=== PATIENT | male | born 1945 | race Two or more races ===

== ENCOUNTER 2017-09-06 11:09 | Inpatient (IN) | payer OTHER ==
[~2017-09-06] VITALS: Ht 162.6 cm; Wt 79.4 kg
[~2017-09-06 11:09] MED LIST: ASPIR 8181 MG PO; BENADRYL25 MG PO; CARVEDILOL25 MG; CEFUROXIME250 MG PO; CLONAZEPAM0.5 MG PO; COZAAR100 MG; DICLOFENAC SODI50 MG PO; ISORDIL10 MG PO; LANOXIN125 MCG; LASIX20 MG; LEVAQUIN500 MG PO; LEVSIN/SL0.125 MG SL; MEDROL4 MG PO; NABUMETONE500 MG PO; ORPH100T PO; SINGULAIR 10MG10 MG; TUSSIONEX PENNKI5 ML PO; [UNRECOGNIZED DRUG - OTHER]
[2017-09-06] MEDS ORDERED: HYDRALAZINE HC100 MG PO (12:55)
== END 2017-09-18 18:24 | disposition home or self-care (01) | DRG 280 ==
LOC: ER 11:09 → ICU-2 19:44 → SEC-K 09-11 14:53 → MEDJ 09-11 16:41 → MEDI 09-11 16:41 → MEDJ 09-18 18:24
PROC: 3E0F7GC Introduction of Other Therapeutic Substance into Respiratory Tract, Via Natural or Artificial Opening (ICD-10-PCS; principal; 2017-09-06)
PROC: 4A033R1 Measurement of Arterial Saturation, Peripheral, Percutaneous Approach (ICD-10-PCS; 2017-09-06)
PROC: B246ZZZ Ultrasonography of Right and Left Heart (ICD-10-PCS; 2017-09-06)
PROC: 5A09457 Assistance with Respiratory Ventilation, 24-96 Consecutive Hours, Continuous Positive Airway Pressure (ICD-10-PCS; 2017-09-06)
PROC: 4A12X4Z Monitoring of Cardiac Electrical Activity, External Approach (ICD-10-PCS; 2017-09-11)
DX: I21.4 Non-ST elevation (NSTEMI) myocardial infarction (principal); I50.23 Acute on chronic systolic (congestive) heart failure; J18.9 Pneumonia, unspecified organism; A41.9 Sepsis, unspecified organism; J44.1 Chronic obstructive pulmonary disease with (acute) exacerbation; J44.0 Chronic obstructive pulmonary disease with (acute) lower respiratory infection; I24.9 Acute ischemic heart disease, unspecified; J20.9 Acute bronchitis, unspecified; Z95.810 Presence of automatic (implantable) cardiac defibrillator; I11.0 Hypertensive heart disease with heart failure; I34.0 Nonrheumatic mitral (valve) insufficiency

== ENCOUNTER 2017-09-30 17:31 | Inpatient (IN) | payer OTHER ==
[~2017-09-30] VITALS: Ht 162.6 cm; Wt 79.4 kg
[~2017-09-30 17:31] MED LIST changes: +HYDRALAZINE HC100 MG PO
== END 2017-10-02 18:51 | disposition home or self-care (01) | DRG 812 ==
LOC: ER 17:31 → MEDI 10-01 19:01
PROC: 30233N1 Transfusion of Nonautologous Red Blood Cells into Peripheral Vein, Percutaneous Approach (ICD-10-PCS; principal; 2017-09-30)
PROC: 3E0F7GC Introduction of Other Therapeutic Substance into Respiratory Tract, Via Natural or Artificial Opening (ICD-10-PCS; 2017-10-01)
DX: D50.8 Other iron deficiency anemias (principal); I50.20 Unspecified systolic (congestive) heart failure; J44.9 Chronic obstructive pulmonary disease, unspecified

== ENCOUNTER 2018-02-21 10:19 | Inpatient (IN) | payer OTHER ==
[~2018-02-21] VITALS: Ht 162.6 cm; Wt 81.6 kg
== END 2018-02-25 13:30 | disposition home or self-care (01) | DRG 292 ==
LOC: ER 10:19 → ICU-2 13:20 → SEC-K 13:20 → ICU-2 15:36 → SEC-K 02-23 13:15 → MEDJ 02-23 13:19
PROC: B246ZZZ Ultrasonography of Right and Left Heart (ICD-10-PCS; principal; 2018-02-21)
PROC: 4A033R1 Measurement of Arterial Saturation, Peripheral, Percutaneous Approach (ICD-10-PCS; 2018-02-21)
PROC: 4A12X4Z Monitoring of Cardiac Electrical Activity, External Approach (ICD-10-PCS; 2018-02-23)
DX: I50.23 Acute on chronic systolic (congestive) heart failure (principal); J44.1 Chronic obstructive pulmonary disease with (acute) exacerbation; I25.5 Ischemic cardiomyopathy; I25.10 Atherosclerotic heart disease of native coronary artery without angina pectoris; I11.0 Hypertensive heart disease with heart failure; E78.49 Other hyperlipidemia; Z95.810 Presence of automatic (implantable) cardiac defibrillator

== ENCOUNTER 2019-04-29 09:30 | Outpatient (CLI) | payer OTHER | END 2019-04-29 15:26 | disposition home or self-care (01) | LOC: RAD 09:30 | DX: R10.84 Generalized abdominal pain (principal) ==

== ENCOUNTER 2019-07-19 08:13 | Inpatient (IN) | payer OTHER ==
[~2019-07-19] VITALS: Ht 162.6 cm; Wt 90.7 kg
[2019-07-19] MEDS ORDERED: ATACAND32 MG (08:28)
[2019-07-20] MEDS ORDERED: MONTELUKAST SOD10 MG PO (08:07)
[2019-07-20] MEDS ORDERED: APRESOLINE 10MG10 MG PO (08:08)
== END 2019-07-24 21:08 | disposition home or self-care (01) | DRG 605 ==
LOC: ER 08:13 → SURH 14:15
PROVIDERS: ADMIT Internal Medicine
PROC: B020ZZZ Computerized Tomography (CT Scan) of Brain (ICD-10-PCS; principal; 2019-07-19)
PROC: BR20ZZZ Computerized Tomography (CT Scan) of Cervical Spine (ICD-10-PCS; 2019-07-19)
PROC: 4A033R1 Measurement of Arterial Saturation, Peripheral, Percutaneous Approach (ICD-10-PCS; 2019-07-19)
PROC: B246ZZZ Ultrasonography of Right and Left Heart (ICD-10-PCS; 2019-07-23)
DX: S00.83XA Contusion of other part of head, initial encounter (principal); N39.0 Urinary tract infection, site not specified; J44.1 Chronic obstructive pulmonary disease with (acute) exacerbation; S13.8XXA Sprain of joints and ligaments of other parts of neck, initial encounter; I11.0 Hypertensive heart disease with heart failure; W06.XXXA Fall from bed, initial encounter; Y93.84 Activity, sleeping; Y92.092 Bedroom in other non-institutional residence as the place of occurrence of the external cause; Y99.8 Other external cause status; Z95.810 Presence of automatic (implantable) cardiac defibrillator; B96.89 Other specified bacterial agents as the cause of diseases classified elsewhere

== ENCOUNTER 2019-08-06 10:20 | Emergency (ER) | payer OTHER ==
[~2019-08-06] VITALS: Ht 162.6 cm; Wt 88.9 kg
[~2019-08-06 10:20] MED LIST changes: +APRESOLINE 10MG10 MG PO; +ATACAND32 MG; +MONTELUKAST SOD10 MG PO
[2019-08-06] MEDS ORDERED: LEVAQUIN500 MG (10:42)
== END 2019-08-06 15:01 | disposition home or self-care (01) ==
LOC: ER 10:20
DX: I87.2 Venous insufficiency (chronic) (peripheral) (principal); R60.0 Localized edema

== ENCOUNTER → 2019-08-25 | Outpatient (CLI) | payer OTHER ==
[~2019-08-25] MED LIST changes: +LEVAQUIN500 MG
== END | disposition home or self-care (01) ==
LOC: RAD 09:29
PROVIDERS: ATTEND Internal Medicine
DX: M15.0 Primary generalized (osteo)arthritis (principal); M25.541 Pain in joints of right hand; M25.542 Pain in joints of left hand

== ENCOUNTER 2019-08-26 08:14 | Outpatient (CLI) | payer OTHER | END 2019-08-26 08:16 | disposition home or self-care (01) | LOC: SONOGRAMA 08:14 | DX: M25.541 Pain in joints of right hand (principal); M25.542 Pain in joints of left hand ==

== ENCOUNTER 2020-07-12 08:41 | Outpatient (CLI) | payer OTHER | END 2020-07-12 08:53 | disposition home or self-care (01) | LOC: TOM 08:41 | PROVIDERS: ATTEND Internal Medicine | DX: R10.84 Generalized abdominal pain (principal) ==

== ENCOUNTER → 2021-02-18 | Outpatient (CLI) | payer OTHER | END | disposition home or self-care (01) | LOC: RAD 09:07 | PROVIDERS: ATTEND Internal Medicine | DX: M25.551 Pain in right hip (principal); M25.552 Pain in left hip ==

== ENCOUNTER 2023-09-24 05:00 | Day surgery (SDC) | payer OTHER ==
[~2023-09-24 05:00] MED LIST changes: +ABATINEX680 MG PO; +ATACAN
[2023-09-24] MEDS ORDERED: CEFAZOLIN SODIUM 1,000 MG VIAL IV ONE (08:45)
[2023-09-24] MEDS ORDERED: FAMOTIDINE/PF 20 MG/10 ML SYRINGE IV SCH (10:00)
[2023-09-24] MEDS ORDERED: CEFAZOLIN SODIUM 1,000 MG VIAL IV SCH (10:00)
[2023-09-24] MEDS ORDERED: FAMOTIDINE/PF 20 MG/2 ML VIAL ONE (11:47)
[2023-09-24] MEDS ORDERED: CEFAZOLIN SODIUM 1,000 MG VIAL ONE (11:47)
== END 2023-09-24 13:15 | disposition home or self-care (01) ==
LOC: CIR.AMB 05:00
PROVIDERS: ATTEND Specialist
DX: K40.90 Unilateral inguinal hernia, without obstruction or gangrene, not specified as recurrent (principal); I10 Essential (primary) hypertension; F41.8 Other specified anxiety disorders

== ENCOUNTER 2023-09-26 11:56 | Emergency (ER) | payer OTHER ==
[~2023-09-26] VITALS: Ht 162.6 cm; Wt 73.5 kg
[2023-09-26] MEDS ORDERED: MIRALAX510 GM PO (14:57)
[2023-09-26] MEDS ORDERED: MAGNESIUM HYDROXIDE 400 MG/5 ML ML PO ONE (15:00)
[2023-09-26] MEDS ORDERED: MINERAL OIL 30 ML BLIST.PACK PO ONE (15:00)
[2023-09-26] MEDS ORDERED: LACTULOSE 20 G/30 ML BLIST.PACK PO ONE (15:00)
[2023-09-26] MEDS ORDERED: MINERAL OIL 30 ML BLIST.PACK ONE (15:31)
[2023-09-26] MEDS ORDERED: MAGNESIUM HYDROXIDE 30 ML BLIST.PACK PO ONE (15:31)
[2023-09-26] MEDS ORDERED: LACTULOSE 20 G/30 ML BLIST.PACK ONE (15:31)
== END 2023-09-26 16:21 | disposition home or self-care (01) ==
LOC: ER 11:57
DX: K59.00 Constipation, unspecified (principal); I10 Essential (primary) hypertension

== ENCOUNTER 2023-11-26 09:24 | Outpatient (CLI) | payer OTHER ==
[~2023-11-26 09:24] MED LIST changes: +MIRALAX510 GM PO
== END 2023-11-26 09:29 | disposition home or self-care (01) ==
LOC: RAD 09:24
DX: M54.50 Low back pain, unspecified (principal)